=== PATIENT | female | born 1960 | race African-American/Black ===

== ENCOUNTER 2019-09-08 18:58 | Inpatient (IN) | payer OTHER, MEDICAID ==
[~2019-09-08] VITALS: Ht 160 cm; Wt 91.6 kg
[~2019-09-08 18:58] MED LIST: AMLO10TA4; ASPI-1158; ESOM20CA; FURO-152; INSASP; LOSA50TA3; SIMV20TA2
[2019-09-08] MEDS ORDERED: KETOROLAC 30MG/ML VIAL IV STA (19:23)
[2019-09-08] MEDS ORDERED: SODIUM CHLORIDE 0.9% 1,000 ML IV ONE (19:23)
[2019-09-08] MEDS ORDERED: ONDANSETRON HCL 4MG/2ML INJ IV STA (19:23)
[2019-09-08] MEDS ORDERED: VANCOMYCIN 1 G PREMIX 200 ML IV SCH (19:45)
[2019-09-08 20:12] LABS: HEMATOCRIT. 28.4 % (36.0-48.0); MEAN CORPUSCULAR HEMOGLOBIN 25.7 pg (28.0-32.0); MEAN PLATELET VOLUME 10.3 fl (7.4-10.4); PLATELET 261 x1000/uL (130-400); RED BLOOD CELL COUNT 3.51 mill/uL (4.2-5.4); RED CELL DISTRIBUTION WIDTH 14.9 % (11.6-14.6)
[2019-09-08 20:17] LABS: CHLORIDE 101 mEq/L (98-107)
[2019-09-08 20:43] LABS: PLATELET ESTIMATE NORMAL
[2019-09-08] MEDS ORDERED: INSULIN LISPRO 100 UNITS/ML SUBCUT ONE (23:00)
[2019-09-08] MEDS ORDERED: ASPIRIN 81MG TABLET PO ONE (23:00)
[2019-09-08] MEDS ORDERED: HYDROCODONE/ACETAMINOPHEN 5/325MG TABLET PO ONE (23:00)
[2019-09-08] MEDS ORDERED: PIPERACILLIN/TAZ 3.375G PREMIX 50 ML IV ONE (23:00)
[2019-09-08 23:44] LABS: CLARITY URINE TURBID (CLEAR); COLOR URINE YELLOW (YELLOW); KETONES URINE TRACE (NEGATIVE); LEUKOCYTE ESTERASE URINE NEGATIVE (NEGATIVE); NITRITE URINE NEGATIVE (NEGATIVE); OCCULT BLOOD URINE 2+ (NEGATIVE); PH URINE 5.5 (4.5-8.0); PROTEIN URINE 4+ (NEGATIVE); SPECIFIC GRAVITY URINE 1.023 (1.005-1.030)
[2019-09-09] MEDS ORDERED: HYDROCODONE/ACETAMINOPHEN 5/325MG TABLET PO PRN (07:45)
[2019-09-09] MEDS ORDERED: MORPHINE SULFATE 2 MG/ML CPJ (NOT FOR IM USE) IV PRN (07:45)
[2019-09-09] MEDS ORDERED: ONDANSETRON HCL 4MG/2ML INJ IV PRN (07:45)
[2019-09-09] MEDS ORDERED: LORAZEPAM 2MG/ML CPJ IV PRN (07:45)
[2019-09-09] MEDS ORDERED: ENOXAPARIN 40MG/0.4ML SYR SUBCUT SCH (07:45)
[2019-09-09] MEDS ORDERED: THIAMINE HCL 100MG TABLET PO SCH (07:45)
[2019-09-09 08:48] VITALS: BP 138/44
[2019-09-09 09:01] VITALS: BP 138/44
[2019-09-09] MEDS ORDERED: VALS1TAB75 PO (09:23)
[2019-09-09] MEDS ORDERED: NPH,100I SQ (09:43)
[2019-09-09] MEDS ORDERED: INSU100I45 (09:43)
[2019-09-09] MEDS ORDERED: ENOXAPARIN 30MG/0.3ML SYR SUBCUT SCH (10:00)
[2019-09-09] MEDS ORDERED: DEXTROSE 50% WATER 50ML SYRINGE IV PRN (10:15)
[2019-09-09] MEDS: THIAMINE HCL 100MG TABLET PO SCH (10:49)
[2019-09-09] MEDS: MORPHINE SULFATE 2 MG/ML CPJ (NOT FOR IM USE) IV PRN (11:00)
[2019-09-09] MEDS: POTASSIUM CHLORIDE 20MEQ TABLET SR PO SCH (11:15)
[2019-09-09] MEDS ORDERED: POTASSIUM CHLORIDE 20MEQ TABLET SR PO NR (11:45)
[2019-09-09] MEDS: PIPERACILLIN/TAZOBACTAM 3.375 G in DEXT 5% WATER 100 ML IV SCH ×2 (12:26→19:58)
[2019-09-09] MEDS: BLOOD SUGAR DIAGNOSTIC STRIP TEST SCH ×3 (12:26→20:10)
[2019-09-09] MEDS: INSULIN LISPRO 100 UNITS/ML SUBCUT SCH ×3 (12:32→20:51)
[2019-09-09 12:47] VITALS: BP 119/47
[2019-09-09] MEDS ORDERED: PIPERACILLIN/TAZOBACTAM 3.375 G/VIAL IV SCH (14:00)
[2019-09-09 16:15] VITALS: BP 120/48
[2019-09-09 16:21] LABS: METHADONE URINE SCREEN NEGATIVE (NEGATIVE); PHENCYCLIDINE URINE SCREEN NEGATIVE (NEGATIVE)
[2019-09-09 16:22] LABS: *AMPHETAMINES SCREEN URINE NEGATIVE (NEGATIVE); *BARBITURATES SCREEN URINE NEGATIVE (NEGATIVE); *BENZODIAZEPINES SCREEN URINE NEGATIVE (NEGATIVE); *COCAINE SCREEN URINE NEGATIVE (NEGATIVE)
[2019-09-09 16:24] LABS: OPIATES URINE SCREEN PRESUMTIVE POSITIVE (NEGATIVE)
[2019-09-09 16:30] LABS: CANNABINOID URINE SCREEN NEGATIVE (NEGATIVE)
[2019-09-09 16:36] VITALS: BP 135/50
[2019-09-09] MEDS: HYDROCODONE/ACETAMINOPHEN 5/325MG TABLET PO PRN (17:23)
[2019-09-09 20:00] VITALS: BP 134/56
[2019-09-09] MEDS: VANCOMYCIN 750 MG PREMIX 150 ML IV SCH (20:50)
[2019-09-10] VITALS: BP 137/62
[2019-09-10] MEDS: PIPERACILLIN/TAZOBACTAM 3.375 G in DEXT 5% WATER 100 ML IV SCH ×3 (03:00→20:06)
[2019-09-10 04:00] VITALS: BP 138/54
[2019-09-10] MEDS: ACETAMINOPHEN 325MG TABLET PO PRN ×2 (04:33→21:51)
[2019-09-10] MEDS: BLOOD SUGAR DIAGNOSTIC STRIP TEST SCH ×4 (06:21→21:26)
[2019-09-10 08:03] VITALS: BP 136/50
[2019-09-10] MEDS: THIAMINE HCL 100MG TABLET PO SCH (08:35)
[2019-09-10] MEDS: POTASSIUM CHLORIDE 20MEQ TABLET SR PO SCH (08:35)
[2019-09-10] MEDS: MORPHINE SULFATE 2 MG/ML CPJ (NOT FOR IM USE) IV PRN (08:35)
[2019-09-10] MEDS: ENOXAPARIN 40MG/0.4ML SYR SUBCUT SCH (08:36)
[2019-09-10] MEDS: INSULIN LISPRO 100 UNITS/ML SUBCUT SCH ×4 (08:50→21:26)
[2019-09-10 11:51] VITALS: BP 136/45
[2019-09-10 15:36] VITALS: BP 160/65
[2019-09-10] MEDS: HYDROCODONE/ACETAMINOPHEN 5/325MG TABLET PO PRN (18:29)
[2019-09-10 20:00] VITALS: BP 129/50
[2019-09-10] MEDS: VANCOMYCIN 750 MG PREMIX 150 ML IV SCH (21:25)
[2019-09-11] VITALS: BP 134/48
[2019-09-11] MEDS: HYDROCODONE/ACETAMINOPHEN 5/325MG TABLET PO PRN ×3 (00:03→17:25)
[2019-09-11] MEDS: PIPERACILLIN/TAZOBACTAM 3.375 G in DEXT 5% WATER 100 ML IV SCH ×3 (03:00→20:19)
[2019-09-11 04:00] VITALS: BP 150/55
[2019-09-11] MEDS: BLOOD SUGAR DIAGNOSTIC STRIP TEST SCH ×4 (06:28→20:19)
[2019-09-11 07:35] LABS: BASOPHILS % 0.6 % (0.0-2.0); EOSINOPHILS % 2.2 % (0.0-5.0); HEMATOCRIT. 23.9 % (36.0-48.0); HEMOGLOBIN. 7.7 g/dL (12.0-16.0); LYMPHOCYTES % 8.2 % (20.0-50.0); MEAN CORPUSCULAR HEMOGLOBIN 25.9 pg (28.0-32.0); MEAN CORPUSCULAR VOLUME 80.5 fL (81.0-99.0); MEAN PLATELET VOLUME 10.3 fl (7.4-10.4); MONOCYTES % 7.4 % (2.0-8.0); NEUTROPHILS % 81.6 % (40.0-76.0); PLATELET 288 x1000/uL (130-400); RED BLOOD CELL COUNT 2.96 mill/uL (4.2-5.4); RED CELL DISTRIBUTION WIDTH 14.7 % (11.6-14.6)
[2019-09-11] MEDS: INSULIN LISPRO 100 UNITS/ML SUBCUT SCH ×4 (07:50→20:29)
[2019-09-11] MEDS: POTASSIUM CHLORIDE 20MEQ TABLET SR PO SCH (09:01)
[2019-09-11] MEDS: THIAMINE HCL 100MG TABLET PO SCH (09:01)
[2019-09-11] MEDS: ENOXAPARIN 40MG/0.4ML SYR SUBCUT SCH (09:01)
[2019-09-11 12:00] VITALS: BP 134/51
[2019-09-11 16:00] VITALS: BP 164/66
[2019-09-11 20:00] VITALS: BP 152/63
[2019-09-11] MEDS: MORPHINE SULFATE 2 MG/ML CPJ (NOT FOR IM USE) IV PRN (20:49)
[2019-09-11] MEDS ORDERED: VANCOMYCIN 1 G PREMIX 200 ML IV SCH (22:00)
[2019-09-12] VITALS: BP 161/58
[2019-09-12] MEDS: PIPERACILLIN/TAZOBACTAM 3.375 G in DEXT 5% WATER 100 ML IV SCH ×3 (03:17→21:15)
[2019-09-12 04:00] VITALS: BP 159/55
[2019-09-12] MEDS: BLOOD SUGAR DIAGNOSTIC STRIP TEST SCH ×4 (07:20→21:19)
[2019-09-12] MEDS: INSULIN LISPRO 100 UNITS/ML SUBCUT SCH ×4 (07:50→21:19)
[2019-09-12] MEDS ORDERED: ONDANSETRON HCL 4MG/2ML INJ IV PRN (09:30)
[2019-09-12] MEDS: ENOXAPARIN 40MG/0.4ML SYR SUBCUT SCH (10:30)
[2019-09-12 12:00] VITALS: BP 160/56
[2019-09-12] MEDS ORDERED: FAMOTIDINE 20MG TABLET PO SCH (13:15)
[2019-09-12] MEDS ORDERED: LACTULOSE 20G/30ML UDC PO SCH (13:15)
[2019-09-12] MEDS: POTASSIUM CHLORIDE 20MEQ TABLET SR PO SCH (14:07)
[2019-09-12] MEDS: THIAMINE HCL 100MG TABLET PO SCH (14:07)
[2019-09-12 16:33] LABS: HEMOGLOBIN 8.3 g/dL (12.0-16.0); MEAN CORPUSCULAR HEMOGLOBIN 25.9 pg (28.0-32.0); MEAN CORPUSCULAR VOLUME 81.1 fL (81.0-99.0); PLATELET 345 x1000/uL (130-400); RED BLOOD CELL COUNT 3.21 mill/uL (4.2-5.4); RED CELL DISTRIBUTION WIDTH 15.1 % (11.6-14.6)
[2019-09-12 16:39] VITALS: BP 144/52
[2019-09-12] MEDS: HYDROCODONE/ACETAMINOPHEN 5/325MG TABLET PO PRN (16:43)
[2019-09-12] MEDS ORDERED: LISINOPRIL 10MG TABLET PO SCH (17:00)
[2019-09-12] MEDS ORDERED: SODIUM CHLORIDE 0.9% 1,000 ML IV SCH (17:00)
[2019-09-12] MEDS ORDERED: TETANUS, DIPHTHERIA, PERTUSSIS VAC/PF 0.5ML (>7YR OLD) IM ONE (17:00)
[2019-09-12 20:00] VITALS: BP 153/57
[2019-09-12 20:25] VITALS: BP 153/57
[2019-09-13] MEDS ORDERED: PIPERACILLIN/TAZOBACTAM 2.25 G in DEXTROSE 5% WATER 50 ML IV SCH (04:00)
== END 2019-09-12 22:00 | disposition home health service (06) | DRG 853 ==
LOC: ER 18:58 → EDBEDREQTM 22:53 → EDBEDREQ 22:53 → EDBEDREQSVC 22:53 → EDBEDREQTM 22:54 → EDBEDREQ 22:59 → 6WST 23:57 → ENRESERV 09-09 07:38 → ER 09-09 08:34
PROVIDERS: ADMIT Internal Medicine; ATTEND Internal Medicine
PROC: 0KBW0ZZ Excision of Left Foot Muscle, Open Approach (ICD-10-PCS; principal; 2019-09-10)
DX: A41.9 Sepsis, unspecified organism (principal); E43 Unspecified severe protein-calorie malnutrition; N17.0 Acute kidney failure with tubular necrosis; N39.0 Urinary tract infection, site not specified; L97.429 Non-pressure chronic ulcer of left heel and midfoot with unspecified severity; E87.1 Hypo-osmolality and hyponatremia; E87.2 Acidosis; M86.8X7 Other osteomyelitis, ankle and foot; L03.116 Cellulitis of left lower limb; E11.22 Type 2 diabetes mellitus with diabetic chronic kidney disease; D64.9 Anemia, unspecified; I12.9 Hypertensive chronic kidney disease with stage 1 through stage 4 chronic kidney disease, or unspecified chronic kidney disease; K59.00 Constipation, unspecified; L89.629 Pressure ulcer of left heel, unspecified stage; E11.319 Type 2 diabetes mellitus with unspecified diabetic retinopathy without macular edema; N18.3 Chronic kidney disease, stage 3 (moderate); E11.42 Type 2 diabetes mellitus with diabetic polyneuropathy; E11.51 Type 2 diabetes mellitus with diabetic peripheral angiopathy without gangrene; E11.621 Type 2 diabetes mellitus with foot ulcer; E11.65 Type 2 diabetes mellitus with hyperglycemia; N18.9 Chronic kidney disease, unspecified; K29.70 Gastritis, unspecified, without bleeding; E11.69 Type 2 diabetes mellitus with other specified complication; E66.01 Morbid (severe) obesity due to excess calories; Z89.511 Acquired absence of right leg below knee; Z87.891 Personal history of nicotine dependence; Z83.3 Family history of diabetes mellitus; Z79.899 Other long term (current) drug therapy; Z79.82 Long term (current) use of aspirin; Z68.35 Body mass index [BMI] 35.0-35.9, adult; Z71.3 Dietary counseling and surveillance
CPT/HCPCS: 36415; 73630; 73721; 76700; 80048; 80053; 80202; 80305; 81003; 82570; 82962; 83036; 84156; 84484; 85025; 85027; 85651; 86140; 87070; 87075; 87077; 87186; 90715; 93922; 99285; J1650; J1815; J1885; J2270; J2405; J2543; J3370; J7030; J7060

== ENCOUNTER 2020-06-14 12:35 | Emergency (ER) | payer OTHER, MEDICAID ==
[~2020-06-14] VITALS: Ht 152.4 cm; Wt 78.0 kg
[~2020-06-14 12:35] MED LIST changes: -AMLO10TA4; -ESOM20CA; -FURO-152; +INSU100I45; -LOSA50TA3; +NPH,100I SQ; +VALS1TAB75 PO
[2020-06-14 12:39] VITALS: BP 138/62
[2020-06-14] MEDS ORDERED: ACETAMINOPHEN 325MG TABLET PO ONE (13:00)
[2020-06-14] MEDS ORDERED: LIDOCAINE HCL 1% 20ML VIAL (Pyxis) INJ INFIL ONE (14:30)
== END 2020-06-14 15:59 | disposition home or self-care (01) ==
LOC: ER 12:35
DX: S01.21XA Laceration without foreign body of nose, initial encounter (principal); W05.0XXA Fall from non-moving wheelchair, initial encounter; Y93.89 Activity, other specified; Y92.89 Other specified places as the place of occurrence of the external cause; Y99.8 Other external cause status; E11.9 Type 2 diabetes mellitus without complications; E78.00 Pure hypercholesterolemia, unspecified; I10 Essential (primary) hypertension; Z79.899 Other long term (current) drug therapy
CPT/HCPCS: 70486; 73552; 99285

== ENCOUNTER 2020-06-21 15:24 | Emergency (ER) | payer OTHER, MEDICAID ==
[~2020-06-21] VITALS: Ht 152.4 cm; Wt 80.0 kg
[2020-06-21] MEDS ORDERED: BACITRACIN ZINC OINT UDPKT TOP ONE (15:45)
[2020-06-21 15:55] VITALS: BP 129/56
== END 2020-06-21 15:57 | disposition home or self-care (01) ==
LOC: ER 15:24
DX: S01.21XD Laceration without foreign body of nose, subsequent encounter (principal); X58.XXXD Exposure to other specified factors, subsequent encounter; E11.9 Type 2 diabetes mellitus without complications; E78.00 Pure hypercholesterolemia, unspecified; I10 Essential (primary) hypertension; Z79.4 Long term (current) use of insulin; Z79.899 Other long term (current) drug therapy
CPT/HCPCS: 99283